=== PATIENT | male | born 1940 | race Caucasian/White ===

== ENCOUNTER 2018-09-19 07:39 | Observation (INO) | payer MEDICARE, OTHER ==
[~2018-09-19] VITALS: Ht 180.3 cm; Wt 82.3 kg
[~2018-09-19 07:39] MED LIST: ASPI-515 PO; OMEP20CA9 PO
[2018-09-19] MEDS: SODIUM CHLORIDE 0.9% 1,000 ML IV SCH ×3 (08:02→23:40)
[2018-09-19] MEDS ORDERED: VIT1TABL46 PO (08:07)
[2018-09-19] MEDS ORDERED: CHOL500045 PO (08:07)
[2018-09-19] MEDS ORDERED: ATOR40TA PO (08:07)
[2018-09-19 08:09] VITALS: BP 166/92
[2018-09-19] MEDS ORDERED: PLEASE ENTER HEIGHT AND WEIGHT MC SCH (08:30)
[2018-09-19] MEDS ORDERED: CEFAZOLIN PMX 1GM/50ML 50 ML IVPB ONE (08:30)
[2018-09-19 08:56] LABS: BASOPHILS # (AUTO) 0.02 x10^3/uL (0-0.1); BASOPHILS % (AUTO) 0 % (0-1); EOSINOPHILS # (AUTO) 0.09 x10^3/uL (0-0.4); EOSINOPHILS % (AUTO) 2 % (1-7); LYMPHOCYTES # (AUTO) 1.71 x10^3/uL (1-3.4); LYMPHOCYTES % (AUTO) 36 % (22-44); MD NO; MEAN CORPUSCULAR HEMOGLOBIN 34.1 pg (27.5-34.5); MEAN CORPUSCULAR VOLUME 100.2 fL (81-97); MONOCYTES # (AUTO) 0.59 x10^3/uL (0.2-0.8); MONOCYTES % (AUTO) 12 % (2-9); NEUTROPHILS % (AUTO) 50 % (42-75); PLATELET COUNT 179 x10^3/uL (130-400); RED BLOOD COUNT 4.59 x10^6/uL (4.38-5.82); RED CELL DISTRIBUTION WIDTH 13.2 % (9.4-14.8)
[2018-09-19] MEDS ORDERED: MIDAZOLAM 1 MG/ML, 5ML ONE (09:55)
[2018-09-19] MEDS ORDERED: CEFAZOLIN PMX 1GM/50ML 50 ML ONE (09:55)
[2018-09-19] MEDS ORDERED: CEFAZOLIN 1,000 MG ONE (09:55)
[2018-09-19] MEDS ORDERED: FENTANYL PF 100 MCG/2ML ONE (09:55)
[2018-09-19] MEDS ORDERED: LIDOCAINE 2%, 20ML ONE (09:55)
[2018-09-19] MEDS ORDERED: Hold all anticoagulants for 24 hours MC PRN (11:00)
[2018-09-19] MEDS ORDERED: ACETAMINOPHEN 325 MG TABLET PO PRN (11:00)
[2018-09-19 14:00] VITALS: BP 144/88
[2018-09-19] MEDS: CEFAZOLIN PMX 1GM/50ML 50 ML IVPB SCH (18:19)
[2018-09-19 19:22] VITALS: BP 129/76
[2018-09-19] MEDS: SODIUM CHLORIDE FLUSH 10ML SYR IVF SCH (20:30)
[2018-09-19] MEDS ORDERED: ATORVASTATIN 40 MG TABLET PO SCH (21:00)
[2018-09-20] MEDS: CEFAZOLIN PMX 1GM/50ML 50 ML IVPB SCH (01:01)
[2018-09-20 02:21] VITALS: BP 135/81
[2018-09-20] MEDS ORDERED: OMEPRAZOLE 20 MG CAPSULE.DR PO SCH (06:00)
[2018-09-20 07:20] VITALS: BP 155/88
[2018-09-20] MEDS: SODIUM CHLORIDE FLUSH 10ML SYR IVF SCH (08:35)
[2018-09-20] MEDS ORDERED: ASPIRIN 81 MG TABLET EC PO SCH (09:00)
[2018-09-20] MEDS ORDERED: MULTIVITAMINS/MINERALS TABLET PO SCH (09:00)
[2018-09-20] MEDS ORDERED: CHOLECALCIFEROL 5,000u TAB PO SCH (09:00)
== END 2018-09-20 11:40 | disposition home or self-care (01) ==
LOC: CACL 07:39 → INTOOBSV 10:51 → 5SO 10:51 → CACL 11:56 → DCLOUNGE 09-20 11:28
PROVIDERS: ADMIT Internal Medicine Cardiovascular Disease; ATTEND Internal Medicine Cardiovascular Disease
DX: I44.30 Unspecified atrioventricular block (principal); I49.5 Sick sinus syndrome; I25.10 Atherosclerotic heart disease of native coronary artery without angina pectoris; I10 Essential (primary) hypertension; E78.5 Hyperlipidemia, unspecified; I67.9 Cerebrovascular disease, unspecified; R55 Syncope and collapse
CPT/HCPCS: 33208; 36415; 71045; 71046; 85025; 96365; 96366; 99156; 99157; C1779; C1785; C1892; G0378; J0690; J2250; J3010; J3490; Q9967

== ENCOUNTER 2018-11-06 10:30 | Outpatient (CLI) | payer MEDICARE, OTHER ==
[~2018-11-06 10:30] MED LIST changes: +ATOR40TA PO; +CHOL500045 PO; +VIT1TABL46 PO
== END 2018-11-06 23:59 | disposition home or self-care (01) ==
LOC: CFH 10:30
PROVIDERS: ATTEND Internal Medicine Cardiovascular Disease
DX: R06.02 Shortness of breath (principal); E78.2 Mixed hyperlipidemia; I10 Essential (primary) hypertension; I25.10 Atherosclerotic heart disease of native coronary artery without angina pectoris; I48.91 Unspecified atrial fibrillation; I67.9 Cerebrovascular disease, unspecified; R55 Syncope and collapse
CPT/HCPCS: 71046

== ENCOUNTER 2018-12-19 15:02 | Outpatient (CLI) | payer MEDICARE, OTHER | END 2018-12-19 23:59 | disposition home or self-care (01) | LOC: CVU 15:02 | PROVIDERS: ATTEND Internal Medicine Cardiovascular Disease | DX: I35.8 Other nonrheumatic aortic valve disorders (principal); I10 Essential (primary) hypertension; E78.5 Hyperlipidemia, unspecified; R55 Syncope and collapse | CPT/HCPCS: 93306 ==